=== PATIENT | female | born 1975 ===

== ENCOUNTER 2024-08-07 10:07 | Outpatient (REF) | payer OTHER, SELFPAY ==
--- NOTE | 2024-08-07 09:40 | PAPFT_PTH ---
PATIENT: Cintia Hill LOC: [facility] U#:[id number] AGE/SX: 49/F ROOM: RE08/07/[address]: Kiki Montero NP : 1975 BED: DIS: 08/07/2024 SPEC #: [id number] RECD: 08/07/24 13:01 STATUS: ELLEN QUEZADA #: [id number] GHASSAN: 08/07/24 09:[address]: Kiki Montero NP DEPT: [facility] Cytology RECD BY: Laila Connors ENTERED: 08/07/24 13:01 SP TYPE: PAPFT OT DR: Unknown,Unknown Tissues: 1 - CX/ENDOCX FOR PAP SMEARS Procedures: PAP THIN PREP/[facility] Screening HPV DNA PROBE Comments: [id number] (CHLAMYDIA/GC)
== END 2024-08-07 10:08 | disposition home or self-care (01) ==
LOC: LBN 10:07
PROVIDERS: Visit Provider Nurse Practitioner Women's Health
DX: Z12.4 Encounter for screening for malignant neoplasm of cervix (principal)
CPT/HCPCS: 88142; 87624